=== PATIENT | male | born 1995 | race Caucasian/White ===

== ENCOUNTER 2020-05-24 12:58 | Emergency (ER) | payer MEDICAID ==
[~2020-05-24] VITALS: Ht 182.9 cm; Wt 63.6 kg
[2020-05-24] MEDS ORDERED: normal saline 1000ML IV soln IVB ONE (14:05)
--- NOTE | 2020-05-24 14:15 | NUR ---
attempted to do ordered iv, pt refused x2 emphatically. provider notified.
--- NOTE | 2020-05-24 15:33 | NUR ---
PT GIVEN 1000ML OF WATER TO DRINK
--- NOTE | 2020-05-24 16:03 | NUR ---
PT DRANK 2,000ML OF WATER.
[2020-05-24 17:00] VITALS: BP 110/73
== END 2020-05-24 17:01 | disposition home or self-care (01) ==
LOC: ER 13:00
DX: T40.1X1A Poisoning by heroin, accidental (unintentional), initial encounter (principal); F17.200 Nicotine dependence, unspecified, uncomplicated; F15.90 Other stimulant use, unspecified, uncomplicated; F11.90 Opioid use, unspecified, uncomplicated; Z56.0 Unemployment, unspecified; Z59.0 Homelessness; Y92.89 Other specified places as the place of occurrence of the external cause
CPT/HCPCS: 99283

== ENCOUNTER 2024-01-09 09:42 | Emergency (ER) | payer MEDICAID ==
[~2024-01-09] VITALS: Ht 182.9 cm; Wt 85.4 kg
[2024-01-09 10:02] VITALS: BP 122/88; PULSE 88; RESP 14; O2SAT 96
[2024-01-09 13:17] LABS: ALANINE AMINOTRANSFERASE 111 U/L (12-78); ALBUMIN 4.5 G/DL (3.4-5.0); ALBUMIN/GLOBULIN RATIO 1.2 (1.1-1.5); ALKALINE PHOSPHATASE 96 IU/L (46-116); ANION GAP 10 (8-16); ASPARTATE AMINO TRANSFERASE 50 U/L (10-37); BILIRUBIN,TOTAL 0.3 MG/DL (0.1-1.0); BLOOD UREA NITROGEN 7 MG/DL (7-18); BUN/CREATININE RATIO 8.6 (10.0-20.0); CALCIUM 9.2 MG/DL (8.5-10.1); CHLORIDE 102 MMOL/L (99-107); CREATININE 0.81 MG/DL (0.60-1.10); GLUCOSE 81 MG/DL (70-104); POTASSIUM 3.9 MMOL/L (3.5-5.1); SODIUM 138 MMOL/L (135-145); TOTAL CARBON DIOXIDE 26.2 MMOL/L (24-32); TOTAL PROTEIN 8.4 G/DL (6.4-8.2); eCRCL 152 ML/MIN; eGFR > 90 ML/MIN
[2024-01-09] MEDS ORDERED: MUPI1OIN5 TOP (15:11)
[2024-01-09 15:16] VITALS: TEMP 98.2
== END 2024-01-09 15:23 | disposition home or self-care (01) ==
LOC: ER 09:42
DX: L03.312 Cellulitis of back [any part except buttock and flank] (principal); L98.499 Non-pressure chronic ulcer of skin of other sites with unspecified severity; F15.90 Other stimulant use, unspecified, uncomplicated
CPT/HCPCS: 36415; 80053; 99283

== ENCOUNTER 2024-09-27 13:02 | Emergency (ER) | payer MEDICAID ==
[~2024-09-27] VITALS: Ht 182.9 cm; Wt 99.6 kg
[~2024-09-27 13:02] MED LIST: MUPI1OIN5 TOP
[2024-09-27 13:08] VITALS: BP 156/83; PULSE 95; RESP 16; TEMP 98.2; O2SAT 95
[2024-09-27 13:24] LABS: BILIRUBIN,URINE NEGATIVE (Neg); CLARITY,URINE CLEAR (Clear); COLOR,URINE YELLOW (Yellow); GLUCOSE, URINE NEGATIVE (Neg); KETONES,URINE NEGATIVE (Neg); LEUKOCYTE ESTERASE ,URINE NEGATIVE (Neg); NITRITES, URINE NEGATIVE (Neg); OCCULT BLOOD,URINE NEGATIVE (Neg); PROTEIN,URINE NEGATIVE (Neg); UROBILINOGEN,URINE 0.2 E.U/dL (0.2-1.0)
[2024-09-27 13:26] LABS: UA COLLECTION TYPE CLN CATCH MIDSTREAM
== END 2024-09-27 16:27 | disposition home or self-care (01) ==
LOC: ER 13:03
DX: R30.0 Dysuria (principal); F15.90 Other stimulant use, unspecified, uncomplicated; F11.90 Opioid use, unspecified, uncomplicated
CPT/HCPCS: 81003; 99283

== ENCOUNTER → 2025-01-06 | Emergency (ER) | payer MEDICAID ==
[~2025-01-06] VITALS: Ht 182.9 cm; Wt 102.3 kg
[~2025-01-06] MED LIST changes: +ACET-1025 PO; +CLIN300C71 PO; +IBUP-1986 PO
[2025-01-06 18:30] VITALS: BP 148/105; PULSE 95; RESP 18; O2SAT 99
--- NOTE | 2025-01-06 20:04 | Physician Documentation ---
History of Present Illness ~ Chief Complaint: Abscess Stated Complaint: ANKLE PAIN Time Seen by MD: 18:56 Primary Medical Doctor: Mateo LAGUERRE Patient is seen today with complaints of redness and swelling from a scratch in his skin over the dorsum of the right ankle that started just a couple of days ago. Patient states he has history of skin infections. Patient denies any fevers or chills or chest pain or shortness of breath or abdominal pain or nausea, vomiting, diarrhea. Tetanus Within 5 Years: No (UNK) Medication Reconciliation Allergies: Coded Allergies: No Known Allergies (Unverified , 05/24/20) Scheduled Mupirocin (Mupirocin), 1 APPLIC TOP Q8H Past Medical History Past Medical History: No Pertinent History Past Surgical History: noncontributory Drug Use: methamphetamine, heroin Lives In: Homeless Occupation: unemployed Review of Systems Constitutional: Denies: chills, fever, weakness Eyes: Denies: pain, blurred vision ENT: Denies: ear pain, nose pain, throat pain, mouth pain Respiratory: Denies: cough, shortness of breath Cardiovascular: Denies: chest pain, palpitations Gastrointestinal: Denies: abdominal pain, nausea, vomiting Genitourinary: Denies: burning, dysuria Male Genitalia: Denies: penile discharge, testicular pain Neurological: Denies: headache, dizziness Musculoskeletal: Denies: pain, swelling Integumentary: Denies: rash, lesions Allergic/Immunologic: Denies: hives, itching Hematologic/Lymphatic: Denies: no symptoms reported Psychiatric: Denies: depression, anxiety Physical Exam Vital Signs: Temperature: 98.6, Source: Temporal, Heart Rate: 95, Respiratory Rate: 18, BP: 148/105, Pulse Oximetry: 99, Weight: 102.270 Oxygen Flow Rate: 0 Physical Exam General: Awake and Alert, no acute distress. HEENT: Conjunctiva pink, Sclera clear, Mucus Membranes moist. Neck: Supple without masses and tenderness. Resp: Unlabored. Lungs clear to auscultation bilaterally. Heart: Regular Rate and rhythm, normal S1 and S2 without murmur, rub or gallop. Musculoskeletal: Patient on exam does have swelling and erythema over right ankle. I do not appreciate any fluctuant mass over dorsum of right ankle. Patient has central sore on dorsum of right ankle with drainage appears to be serosanguineous. Patient is able to bear weight on right ankle without any pain in the joint. Patient is neurovascularly intact distally. Motor function is intact distally. Skin: Warm and Dry. Progress Results/Orders Results/Orders Orders - ASHLEY HIGGINS PAC Ankle, Complete(3vw Min) (01/06/25 20:08) Completed Orders - ASHLEY HIGGINS PAC Ankle, Complete(3vw Min) (01/06/25 20:08) Clindamycin Capsule (Cleocin Capsule) (01/06/25 19:57) Vital Signs 01/06/25 18:30 Temp 98.6 Pulse 95 Resp 18 B/P (MAP) 148/105 Pulse Ox 99 O2 Flow Rate 0 EKG/XRAY/CT/US/VASC/MRI Bone/Soft Tissue X-Ray (Ext.) : Additional Comment X-ray of right ankle interpreted by myself today shows no sign of acute fracture, bones in anatomic alignment, no osteolytic or blastic lesions. DIAGNOSTIC RADIOLOGY Patient: KM LEO Medical Record: [id number] JOSEPH MOUNT STERLING : 1995, Age: 29 Sex: Male Location: ER Patient Status: [facility] Service Date/Time: 01/06/252007 Ordering Physician: ASHLEY HIGGINS PAC Exam: ANKLE, COMPLETE(3VW MIN) CLINICAL INDICATION: right ankle pain TECHNIQUE: 3 radiographic views of the right ankle were obtained. Comparison: None FINDINGS/IMPRESSION: There is no evidence of acute fracture or dislocation. The visualized joint space is well maintained. The alignment is anatomical. There is no radiopaque foreign body. [id number] ankle soft tissue edema Electronically Signed by:ANGELIKA HERNANDEZ DO Date & Time: 01/06/252017 Dictated by: ANGELIKA HERNANDEZ DO Dictation date and time: 01/06/252004 Primary Care Provider: NO PRIMARY CARE PROVIDER cc: ASHLEY HIGGINS ~ Medical Decision Making Findings Patient is seen today with complaints of redness and swelling from a scratch in his skin over the dorsum of the right ankle that started just a couple of days ago. Patient states he has history of skin infections. Patient denies any fevers or chills or chest pain or shortness of breath or abdominal pain or nausea, vomiting, diarrhea. Patient was given Toradol 30 mg IM in the ED today. As well as clindamycin 300 mg one capsule by mouth in the ED today. Prescription for clindamycin and ibuprofen sent to patient's pharmacy to be taken as directed. Patient will return to ED with any worsening, concerning or changing symptoms. Shared decision-making utilized today with the patient. Departure Disposition: HOME / SELF CARE / HOMELESS Impression: Primary Impression: Cellulitis Qualified Codes: L03.115 - Cellulitis of right lower limb Condition: Improved Discharge Instructions: Cellulitis, Adult, [id number] Additional Instructions: Patient was given Toradol 30 mg IM in the ED today. As well as clindamycin 300 mg one capsule by mouth in the ED today. Prescription for clindamycin and ibuprofen sent to patient's pharmacy to be taken as directed. Patient will return to ED with any worsening, concerning or changing symptoms. Shared decision-making utilized today with the patient. Referrals: NO PRIMARY CARE PROVIDER (PCP) Prescriptions Acetaminophen (Tylenol Extra Strength) 500 Mg Tablet 2 TAB PO Q6H PRN PRN for pain or fever for 7 Days, #56 TAB Prov: ASHLEY HIGGINS 01/06/25 Ibuprofen (Ibuprofen) 800 Mg Tablet 1 TAB PO Q8H for pain for 10 Days, #30 TAB 0 Refills Prov: ASHLEY HIGGINS 01/06/25 Clindamycin HCl (Clindamycin HCl) 300 Mg Capsule 1 CAP PO Q8H for 10 Days, #30 CAP Prov: ASHLEY HIGGINS 01/06/25 Signature Scribe Signature: No scribe Attestation: no scribe ASHLEY HIGGINS January 06, 2025 20:04
--- NOTE | 2025-01-06 20:21 | RADIOLOGY REPORT ---
CLINICAL INDICATION: right ankle pain TECHNIQUE: 3 radiographic views of the right ankle were obtained. Comparison: None FINDINGS/IMPRESSION: There is no evidence of acute fracture or dislocation. The visualized joint space is well maintained. The alignment is anatomical. There is no radiopaque foreign body. [id number] ankle soft tissue edema
[2025-01-06] MEDS: clindamycin 150mg capsule PO STA (20:53)
[2025-01-06] MEDS: ibuprofen tablet 400 MG TABLET PO STA (21:37)
[2025-01-06] MEDS: acetaminophen 325mg tablet PO STA (21:37)
[2025-01-06 21:40] VITALS: TEMP 98.6
== END | disposition home or self-care (01) ==
LOC: ER 18:24
DX: L03.115 Cellulitis of right lower limb (principal)
CPT/HCPCS: 73610; 99284